=== PATIENT | female | born 1980 | race Caucasian/White ===

== ENCOUNTER 2017-11-09 08:26 | Emergency (ER) | payer BC ==
[2017-11-09] MEDS: NICARDipine HCL 30 MG CAPSULE PO (10:36)
== END 2017-11-09 11:46 | disposition home or self-care (01) ==
LOC: FTE 08:26
DX: I10 Essential (primary) hypertension (principal); R51 Headache
CPT/HCPCS: 99283

== ENCOUNTER 2018-07-09 13:55 | Emergency (ER) | payer BC ==
[2018-07-09] MEDS: SOD CHLORIDE 0.9% 500 ML IV (14:16)
[2018-07-09] MEDS: KETOROLAC 15 MG INJ IV (14:16)
[2018-07-09 14:47] LABS: ADD MAN DIFF? NO
[2018-07-09 14:51] LABS: BASOPHILS % 0.4 % (0.0-2.0); EOSINOPHILS # 0.1 10^3/ul (0.0-0.5); EOSINOPHILS % 1.2 % (0.0-7.0); HEMATOCRIT 40.1 % (37.0-47.0); HEMOGLOBIN 13.5 g/dl (12.0-16.0); LYMPHOCYTES # 1.9 10^3/ul (0.8-2.9); MEAN CORPUSCULAR HEMOGLOBIN 32.7 pg (29.0-33.0); MEAN CORPUSCULAR HGB CONC 33.7 g/dl (32.0-37.0); MEAN CORPUSCULAR VOLUME 97.1 fl (82.0-101.0); MEAN PLATELET VOLUME 10.5 fl (7.4-10.4); MONOCYTE # 0.5 10^3/ul (0.3-0.9); MONOCYTES % 6.3 % (0.0-11.0); NEUTROPHIL # 5.1 10^3/ul (1.6-7.5); NEUTROPHILS % 66.6 % (39.0-77.0); PLATELET COUNT 216 10^3/UL (140-415); RED BLOOD COUNT 4.13 10^6/ul (4.20-5.40); RED CELL DISTRIBUTION WIDTH 12.4 % (11.5-14.5)
[2018-07-09 14:51] LABS: WHITE BLOOD COUNT 7.6 10^3/ul (4.8-10.8)
[2018-07-09 15:08] LABS: D-DIMER 233.55 ng/ml (<460)
[2018-07-09 15:09] LABS: ANION GAP 11 (8-16); BLOOD UREA NITROGEN 13 mg/dl (7-20); CALCIUM 9.1 mg/dl (8.4-10.2); CARBON DIOXIDE 29 mmol/L (21-31); CHLORIDE 103 mmol/L (97-110); CREATININE 0.61 mg/dl (0.44-1.00); GLUCOSE 107 mg/dl (70-220); SODIUM 139 mmol/L (135-144)
[2018-07-09 15:21] LABS: TROPONIN-I < 0.012 ng/ml (0.000-0.120)
== END 2018-07-09 15:49 | disposition home or self-care (01) ==
LOC: E/R 13:55
DX: R07.89 Other chest pain (principal); I10 Essential (primary) hypertension
CPT/HCPCS: 36415; 71045; 80048; 81025; 84484; 85025; 85378; 93005; 96374; 99285-25